=== PATIENT | male | born 1980 | race Caucasian/White ===

== ENCOUNTER 2017-01-17 08:40 | Emergency (ER) | payer OTHER ==
[~2017-01-17] VITALS: Ht 175.3 cm; Wt 108.2 kg
[~2017-01-17 08:40] MED LIST: CYANOCOBALAM1000 MCG PO; FLUTICASONE PRO16 GM NS; LORATADINE10 M2 PO; OMEPRAZOLE40 M1 PO; PRILOSEC20 MG PO; TYLENOL EXTRA500 MG PO; ULTRAM50 MG PO
[2017-01-17 10:00] LABS: HEMATOCRIT 49.9 % (38.0-50.0); MCH 28.5 PG (29.0-34.0); MCHC 33.9 G/DL (30.0-36.0); MEAN PLAT.VOLUME 10.2 uM^3 (9.0-12.4); PLATELET COUNT 274 K/uL (156-360); RBC DIS.WIDTH-CV 12.7 % (11.8-14.6); RBC DIS.WIDTH-SD 38.6 % (39-53); RED BLOOD COUNT 5.94 M/uL (4.00-5.50); WHITE BLOOD COUNT 18.1 K/uL (4.1-10.2)
[2017-01-17 11:04] LABS: CHLORIDE 109 mEq/L (99-109); POTASSIUM 4.2 mEq/L (3.7-5.4); SODIUM 142 mEq/L (136-147)
[2017-01-17 11:06] LABS: GLUCOSE 97 mg/dL (70-99)
[2017-01-17 11:07] LABS: ANION GAP 11 MEQ/L (2-14)
[2017-01-17 11:08] LABS: TOTAL BILIRUBIN 0.9 mg/dL (0.0-1.0)
[2017-01-17 11:10] LABS: ALKALINE PHOSPHATASE 67 IU/L (3-129); GFR ESTIMATE (CALCULATED) > 59 mL/min/
[2017-01-17 11:11] LABS: UREA NITROGEN (BUN) 17 mg/dL (9-23)
[2017-01-17 11:13] LABS: LIPASE 40 U/L (1.0-51.0)
[2017-01-17] MEDS ORDERED: METOPROLOL SUCC25 MG PO (12:54)
[2017-01-17 13:02] LABS: ADD MIUA? YES; BILIRUBIN NEGATIVE; BLOOD NEGATIVE; COLOR YELLOW ((YELLOW)); GLUCOSE (STRIP) NEGATIVE; KETONES 5; LEUKOCYTES NEGATIVE; NITRITE NEGATIVE; PROTEIN (STRIP) 100; SPECIFIC GRAVITY 1.025 (1.000-1.030); UROBILINOGEN 0.2 MG/DL (0.2-1.0)
[2017-01-17 13:23] LABS: BACTERIA NONE SEEN /HPF; CALCIUM OXALATE CRYSTALS 2+ /HPF; EPITHELIAL CELLS RARE /HPF; HYALINE CASTS 0-5 /LPF; MUCUS 3+ /LPF; RED BLOOD CELLS 0-5 /HPF (0-5); UCUL ADDED? NO; UNCLASSIFIED CASTS 0-5 /LPF; WHITE BLOOD CELLS 0-5 /HPF (0-5)
[2017-01-17] MEDS ORDERED: IMODIUM A-D2 M2 PO (13:49)
[2017-01-17] MEDS ORDERED: ZOFRAN4 MG PO (13:49)
[2017-01-17] MEDS ORDERED: BENTYL20 MG PO (13:49)
[2017-01-17 14:15] VITALS: BP 142/90
== END 2017-01-17 14:16 | disposition home or self-care (01) ==
LOC: EME 08:40
PROVIDERS: Emergency Medicine
DX: R10.30 Lower abdominal pain, unspecified (principal); R11.10 Vomiting, unspecified; R19.7 Diarrhea, unspecified; D72.829 Elevated white blood cell count, unspecified; I10 Essential (primary) hypertension; Z87.891 Personal history of nicotine dependence
CPT/HCPCS: 74177; 76870; 80053; 81003; 83690; 85027; 99281; 99285; J1885; J2405; J7030